=== PATIENT | female | born 1985 | race Asian ===

== ENCOUNTER 2019-04-21 11:30 | Observation (INO) | payer MEDICAID ==
[~2019-04-21] VITALS: Ht 164 cm; Wt 72.1 kg
== END 2019-04-21 14:50 | disposition home or self-care (01) ==
LOC: SPU 11:30
PROVIDERS: ADMIT Obstetrics & Gynecology; ATTEND Obstetrics & Gynecology
DX: O26.893 Other specified pregnancy related conditions, third trimester (principal); R10.30 Lower abdominal pain, unspecified; Z3A.37 37 weeks gestation of pregnancy
CPT/HCPCS: 76805; G0378

== ENCOUNTER 2019-05-06 13:20 | Inpatient (IN) | payer MEDICAID ==
[~2019-05-06] VITALS: Ht 162.6 cm; Wt 73.5 kg
[2019-05-06] MEDS ORDERED: LR 1,000 ML IV ONE (13:37)
[2019-05-06] MEDS ORDERED: CEFAZOLIN 2 GM IVPB PREMIX 50 ML IV ONE (13:45)
[2019-05-06 14:54] LABS: BASOPHILS % (AUTO) 0.3 % (0.0-2.0); EOSINOPHILS % (AUTO) 0.7 % (0.0-4.0); HEMATOCRIT 37.2 % (36-48); HEMOGLOBIN 12.7 g/dL (12.0-16.0); LYMPHOCYTES # (AUTO) 1.3 K/uL (1.0-5.5); LYMPHOCYTES % (AUTO) 22.5 % (20.5-51.5); MEAN CORPUSCULAR HEMOGLOBIN 33 pg (27-31); MEAN CORPUSCULAR HGB CONC 34 % (32-36); MEAN CORPUSCULAR VOLUME 96 fL (79.0-98.0); MONOCYTES # (AUTO) 0.5 K/uL (0.0-1.0); MONOCYTES % (AUTO) 8.5 % (1.7-9.3); NEUTROPHILS # (AUTO) 3.9 K/uL (1.8-7.7); PLATELET COUNT (AUTO) 236 K/uL (130-430); RED BLOOD CELL COUNT(AUTO) 3.87 MIL/uL (4.2-6.2); RED CELL DISTRIBUTION WIDTH 13.8 % (9.0-15.0); WHITE BLOOD COUNT (AUTO) 5.7 K/uL (4.8-10.8)
[2019-05-06] MEDS ORDERED: BUPIVACAINE /DEX PF 0.75% SPINAL 2 ML AMP INJ ONE (15:00)
[2019-05-06] MEDS ORDERED: NALOXONE HCL 0.4 MG/ML AMP (NARCAN) IVP PRN ×3 (15:00)
[2019-05-06] MEDS ORDERED: OXYTOCIN/0.9 % SODIUM CHLORIDE 20 UNITS/1,000 ML BAG IV ONE (15:00)
[2019-05-06] MEDS ORDERED: LR 1,000 ML IV SCH ×2 (15:00→20:00)
[2019-05-06] MEDS ORDERED: KETOROLAC TROMETHAMINE 60 MG/2 ML VIAL IM PRN (15:00)
[2019-05-06] MEDS ORDERED: ePHEDrine sulfate 50 MG/ML VIAL IVP ONE (15:00)
[2019-05-06] MEDS ORDERED: NALOXONE HCL 1 MG in NACL 0.9% 1,000 ML IV PRN ×4 (15:00)
[2019-05-06] MEDS ORDERED: MEPERIDINE HCL/PF 25 MG/ML DISP.SYRIN IVP PRN ×2 (15:00)
[2019-05-06] MEDS ORDERED: ONDANSETRON HCL 4 MG/2 ML VIAL IVP PRN (15:00)
[2019-05-06] MEDS ORDERED: HYDROmorphone 1 MG INJ. 1 MG/ML AMPUL IVP PRN (15:00)
[2019-05-06] MEDS ORDERED: MORPHINE SULFATE 10MG/10ML PF AMP EP ONE (15:00)
[2019-05-06] MEDS ORDERED: MORPHINE SULFATE 10MG/10ML PF AMP SP SCH (15:00)
[2019-05-06] MEDS ORDERED: HYDROmorphone 2 MG/ML VIAL IVP PRN ×2 (15:00)
[2019-05-06] MEDS ORDERED: DIPHENHYDRAMINE INJ 50 MG/ML VIAL IVP PRN (15:00)
[2019-05-06] MEDS ORDERED: DIPHENHYDRAMINE HCL 50 MG CAPSULE PO PRN (15:00)
[2019-05-06] MEDS ORDERED: ONDANSETRON HCL 4 MG/2 ML VIAL IVP ONE (15:00)
[2019-05-06] MEDS ORDERED: OXYTOCIN 10 UNIT/ML VIAL IV ONE (15:00)
[2019-05-06 17:55] LABS: BILIRUBIN,URINE NEGATIVE (NEGATIVE); BLOOD, URINE 2+ (NEGATIVE); COLOR,URINE YELLOW (YELLOW); GLUCOSE,URINE NEGATIVE (NEGATIVE); KETONES,URINE 3+ (NEGATIVE); LEUKOCYTE ESTERASE ,URINE NEGATIVE (NEGATIVE); NITRITE, URINE NEGATIVE (NEGATIVE); PROTEIN URINE NEGATIVE (NEGATIVE)
[2019-05-06 18:01] LABS: CLARITY/URINE HAZY (CLEAR)
[2019-05-06 18:06] LABS: BACTERIA,URINE FEW /HPF (None Seen); MUCUS,URINE None Seen /LPF (None Seen); WBC,URINE 0-3 /HPF (0-3)
[2019-05-06] MEDS ORDERED: OXYTOCIN/0.9 % SODIUM CHLORIDE 1,000 ML IV ONE (20:00)
[2019-05-06] MEDS ORDERED: BISACODYL 10 MG/SUPPOSITORY RC PRN (20:00)
[2019-05-06] MEDS ORDERED: MEASLES,MUMPS&RUBELLA VACC/PF 12500 UNIT/0.5 ML VIAL SUBQ PRN (20:00)
[2019-05-06] MEDS ORDERED: DIPH-TET-PERTUS Vaccine 0.5 ML VIAL (ADACEL) I.M. PRN (20:00)
[2019-05-06] MEDS ORDERED: OXYCODONE/ACETAMINOPHEN 5-325 TABLET PO PRN (20:00)
[2019-05-06] MEDS ORDERED: LANOLIN 7 GM OINT. TP PRN (20:00)
[2019-05-06 20:56] VITALS: BP_SYST 110
[2019-05-06] MEDS ORDERED: TEMAZEPAM 15 MG CAPSULE PO PRN (21:00)
[2019-05-06] MEDS: CEFAZOLIN 1 GM IVPB PREMIX 50 ML IV SCH (21:20)
[2019-05-07] MEDS: CEFAZOLIN 1 GM IVPB PREMIX 50 ML IV SCH (03:11)
[2019-05-07 06:55] LABS: BASOPHILS % (AUTO) 0.2 % (0.0-2.0); EOSINOPHILS # (AUTO) 0.1 K/uL (0.0-0.4); EOSINOPHILS % (AUTO) 0.6 % (0.0-4.0); HEMOGLOBIN 12.4 g/dL (12.0-16.0); LYMPHOCYTES # (AUTO) 1.3 K/uL (1.0-5.5); MEAN CORPUSCULAR HEMOGLOBIN 33 pg (27-31); MEAN CORPUSCULAR HGB CONC 34 % (32-36); MEAN CORPUSCULAR VOLUME 96 fL (79.0-98.0); MONOCYTES # (AUTO) 0.8 K/uL (0.0-1.0); MONOCYTES % (AUTO) 9.3 % (1.7-9.3); NEUTROPHILS # (AUTO) 6.8 K/uL (1.8-7.7); NEUTROPHILS % (AUTO) 75.9 % (40.0-70.0); PLATELET COUNT (AUTO) 203 K/uL (130-430); RED BLOOD CELL COUNT(AUTO) 3.74 MIL/uL (4.2-6.2); RED CELL DISTRIBUTION WIDTH 13.5 % (9.0-15.0)
[2019-05-07] MEDS ORDERED: CEFAZOLIN 1 GM IVPB PREMIX 50 ML IV ONE (09:45)
[2019-05-07] MEDS ORDERED: OXYCODONE/ACETAMINOPHEN 5-325 TABLET PO PRN (12:00)
[2019-05-07] MEDS: SIMETHICONE 80 MG TAB.CHEW PO PRN ×2 (12:39→18:02)
[2019-05-07] MEDS: IBUPROFEN 600 MG TABLET PO SCH ×3 (12:39→23:56)
[2019-05-07] MEDS: DOCUSATE SODIUM 100 MG CAPSULE PO PRN ×2 (18:02→23:56)
[2019-05-08] MEDS: IBUPROFEN 600 MG TABLET PO SCH ×2 (05:51→12:32)
[2019-05-08] MEDS: SIMETHICONE 80 MG TAB.CHEW PO PRN (12:32)
[2019-05-08] MEDS: DOCUSATE SODIUM 100 MG CAPSULE PO PRN (12:32)
== END 2019-05-08 14:57 | disposition home or self-care (01) | DRG 540 ==
LOC: SPU 13:20
PROVIDERS: ADMIT Obstetrics & Gynecology; ATTEND Obstetrics & Gynecology
PROC: 10D00Z1 Extraction of Products of Conception, Low, Open Approach (ICD-10-PCS; principal; 2019-05-06 14:00)
DX: O24.429 Gestational diabetes mellitus in childbirth, unspecified control (principal); O41.03X0 Oligohydramnios, third trimester, not applicable or unspecified; O34.211 Maternal care for low transverse scar from previous cesarean delivery; Z37.0 Single live birth; Z3A.39 39 weeks gestation of pregnancy
CPT/HCPCS: 36415; 81000-TC; 85025; 86592; 86886; 86900; 86901; 90715; J0690; J2274; J2405; J2590; J3490; J7120